=== PATIENT | male | born 1980 | race Caucasian/White ===

== ENCOUNTER 2018-05-30 16:33 | Emergency (ER) | payer OTHER, SELFPAY ==
[2018-05-30 16:33] VITALS: BP 145/83; PULSE 103; RESP 18; TEMP 36.7; O2SAT 94; BMI 50.8
--- NOTE | 2018-05-30 17:01 | ED.DCSUM_ITS ---
- ER Visit Summary Date of Service: 05/30/18 Chief Complaint: Nausea and vomiting History of Present Illness: The patient is a 37 M underwent laparoscopic gastric bypass to [facility] on Monday. He was discharged yesterday afternoon he did well postoperatively according to his . Within the last 2 hours he started having nausea and vomiting. He has had no diarrhea. No melena. He has had no significant hematemesis. He has had no fever. He has had no dysuria. He feels like he is becoming dehydrated. They called the [facility] he did his gastric bypass surgery and they wanted him evaluated. He states his pain is no worse and is been but is not been able to keep his pain medications down the last few hours. Physical Examination: Vital signs are stable afebrile. Blood pressure 145/83. He does not look septic or toxic. H EENT exam mildly dry mucous membranes. Pupils round reactive light. Neck nontender. Lungs clear to auscultation. Heart regular rhythm rate about 103 no murmur. Abdomen soft. Mildly distended. He has multiple laparoscopic incision sites. These are dry and clean. There is no signs of infection or discharge. He has bowel sounds appear to be hypoactive.. He is diffusely tender. He is moving all 4 extremities. They are neurovascularly intact. Neurologically is awake and alert and moving all 4 extremities. No focal motor deficits. Test Results: His white count of 5. H&H is 16 and 49. Electrolytes sodium 133. Normal gap. Normal BUN and creatinine. Emergency department even though he was not vomiting. Because of his recent surgery I did obtain a CT abdomen and pelvis with IV contrast only. As read by the radiologist this appears to be a small bowel obstruction. There is also dilatation of the colon. I discussed the CAT scan results with the radiologist. Emergency Department Course and Treatment: Patient will be given a liter of IV fluids. Since he has been able to hold down his oxycodone pain medication I will give him IV morphine and Zofran for nausea. Treatment Plan: Discussed all test results the patient and his . I have the [facility] on page for him to be transferred back up there since he is postoperative and was gastric bypass surgery. He will need further evaluation and further evaluation of his CAT scan results. Disposition: Transfer to [facility] for admission for small bowel obstruction status post gastric bypass. Impression: Acute small bowel obstruction with also dilated colon Acute nausea and vomiting Dehydration Status post laparoscopic gastric bypass surgery 2 days ago This note was generated with [employer] dictation software. It may contain incorrect words, spelling, and punctuation that were not noted in review of the chart prior to signing ED Disposition - Plan for ED Patient: Chief Complaint: Nausea/Vomiting Referrals: Jose Grace MD [Primary Care Provider] -
[2018-05-30] MEDS: Ondansetron 4 MG/2 ML Vial IV ×2 (17:03→18:06)
[2018-05-30] MEDS: morphine 8 MG/ML Syringe 6 MG IV ×2 (17:03→23:13)
[2018-05-30] MEDS: 0.9% Normal Saline 1,000 ML 1000 ML IV (17:03)
[2018-05-30 17:30] LABS: Absolute Lymphocyte Count 0.65 X10^3/ul (0.83-4.51); Absolute Neutrophil Count 4.5 X10^3/uL (2.0-7.7); Basophil# 0.01 X10^3/uL; Basophil% 0.2 % (0-1); Eosinophil# 0.06 X10^3/uL; Hematocrit 49.9 % (40-54); Hemoglobin 16.6 g/dl (13.0-16.5); Lymphocyte # 0.65 X10^3/ul (4.0); Lymphocyte % 11.2 % (19-41); Mean Corp Hgb Conc 33.3 g/gl (32-36); Mean Corpuscular Hgb 29.9 pg (27.0-32.0); Mean Corpuscular Volume 89.7 fL (80-94); Mean Platelet Vol. 12.3 fl (6.2-12.0); Monocyte# 0.59 X10^3/uL; Monocyte% 10.2 % (0-10); Neutrophil # 4.48 X10^3/uL (2.7-7.7); Neutrophil % 77.2 % (47-70); Platelet Count 175 K/mm3 (150-450); RBC Distribution Width CV 13.7 % (11.6-14.6); RBC Distribution Width SD 45.5 fl (35.1-43.9); Red Blood Count 5.56 M/mm3 (4.6-6.2); White Blood Count 5.8 K/mm3 (4.4-11.0)
[2018-05-30 17:36] LABS: POSITIVE COUNT NO; POSITIVE DIFFERENTIAL NO; POSITIVE MORPHOLOGY NO
[2018-05-30 17:38] LABS: Anion Gap 9 (5-15); BUN 12 mg/dL (7-18); BUN/Creat Ratio 14.6 RATIO (10-20); Calcium,Total 9.2 mg/dL (8.5-10.1); Chloride 98 mmol/L (98-107); Creatinine, Serum 0.82 mg/dL (0.70-1.30); EST Glomerular Filtration Rate 111 mL/min (>60); Est Glom Filt Rate - Afr Amer 134 mL/min (>60); Glucose 111 mg/dL (74-106); Potassium 4.8 mmol/L (3.5-5.1); Sodium Level 133 mmol/L (136-145)
[2018-05-30] MEDS: proMETHazine 25 MG/ML Syringe 12.5 MG IV ×2 (18:38→19:28)
[2018-05-30 19:14] VITALS: RESP 17
--- NOTE | 2018-05-30 20:04 | CT_ITS ---
STUDY: CT ABDOMEN AND PELVIS WITH CONTRAST REASON FOR EXAM: Male, 37 years old. Nausea, vomiting and weakness. Patient had gastric bypass surgery 2 days ago. RADIATION DOSAGE (If Supplied By Facility): CTDIvol = ( 17.08 ) mGy, DLP = ( 1288.62 ) mGycm TECHNIQUE: Transaxial images were obtained from the dome of the diaphragm to the symphysis pubis without oral contrast. 100 ml of Isovue 300 contrast was administered. Sagittal and coronal images were reconstructed. Individualized dose optimization techniques were used for this CT. COMPARISON: None. FINDINGS: There is patchy left basilar airspace consolidation and dependent atelectasis. The right lung base appears to be clear. The visualized heart is mildly enlarged. There is no evidence for pericardial effusion. Normal liver. Normal gallbladder and extrahepatic biliary system. Normal spleen. There is diffuse atrophy of the pancreas. Normal bilateral adrenal glands. Normal right kidney. Normal left kidney. Multiple surgical sutures are visible in the stomach consistent with history of gastric bypass surgery. There is dilated proximal small bowel with maximum transverse dimension of approximately 4.4 cm. The distal small bowel does not appear to be as dilated. There is also distention of the cecum measuring up to 11.3 cm. There is also dilatation of the ascending colon, hepatic flexure and transverse colon. The descending colon and sigmoid colon does not appear to be dilated. There are multiple colonic diverticula consistent with diverticulosis. There is non-visualization of the appendix. Normal abdominal aorta. Normal inferior vena cava. Normal retroperitoneum. Normal urinary bladder. There is absence of the uterus consistent with a prior hysterectomy. There is a small umbilical hernia containing fat. There are bridging osteophytes anterior to the right sacroiliac joint. There are degenerative changes of the left sacroiliac joint. There is a severe compression fracture of T6 with at least 70% compression. CT/Abdomen/Pelvis W IV Cont ONLY IMPRESSION: 1. CT findings suggests a small bowel obstruction. 2. There is also dilatation of the ascending colon, and transverse colon primarily with severe dilatation of the cecum. This has the appearance of an ileus possibly related to ischemia. 3. Sequela of gastric bypass surgery. Electronically Signed: Estela Gilbert MD at 20:49 EDT , Service support ,
[2018-05-30 21:07] VITALS: RESP 18
[2018-05-30 23:14] VITALS: BP 128/83; PULSE 122; RESP 18; O2SAT 94
[2018-05-30 23:58] VITALS: BP 132/73; PULSE 108; RESP 18; O2SAT 94
[2018-05-31 00:12] VITALS: BP 132/73; PULSE 108; RESP 18; O2SAT 94
== END 2018-05-31 00:29 | disposition short-term general hospital (02) ==
PROVIDERS: Emergency Provider Emergency Medicine
DX: K56.609 Unspecified intestinal obstruction, unspecified as to partial versus complete obstruction (principal); K59.39 Other megacolon; R11.2 Nausea with vomiting, unspecified; E86.0 Dehydration; Z98.84 Bariatric surgery status; E66.9 Obesity, unspecified
CPT/HCPCS: 74177; 80048; 85025; 96361; 96374; 96375; 96376; 99284; J7030; Q9967; A4216; J2405

== ENCOUNTER 2020-06-15 13:16 | Emergency (ER) | payer OTHER, SELFPAY ==
[2020-06-15 13:17] VITALS: BP 135/88; PULSE 79; PULSE 81; RESP 18; TEMP 36.2; O2SAT 100; O2SAT 99; BMI 44.9
--- NOTE | 2020-06-15 13:51 | RAD_ITS ---
STUDY: X-RAY CHEST REASON FOR EXAM: Male, 39 years old. CP since Monday after splitting and lifting wood -- SOB with exertion TECHNIQUE: PA and lateral views of the chest. COMPARISON: Comparison is made with prior study dated 05/03/2017. FINDINGS: EKG electrodes are seen. The lungs are clear and expanded. Scattered calcified granulomas. There is no demonstrated pleural abnormality. Normal size heart. Normal mediastinum and samara. Normal visualized pulmonary arteries. There is atherosclerotic tortuosity of the aortic arch and descending thoracic aorta. Stable loss of height of a mid dorsal vertebrae. Normal visualized ribs, clavicles, and shoulders. There is no demonstrated abnormality of the visualized soft tissue structures of the upper abdomen. RAD/Chest PA and Lateral IMPRESSION: No acute abnormality is seen. Electronically Signed: Aditya Hadley, at 14:27 EDT , Service support ,
--- NOTE | 2020-06-15 13:51 | EKG12_ITS ---
Test Reason : Blood Pressure : / mmHG Vent. Rate : 067 BPM Atrial Rate : 067 BPM P-R Int : 166 ms QRS Dur : 086 ms QT Int : 382 ms P-R-T Axes : 028 010 015 degrees QTc Int : 403 ms Normal sinus rhythm Normal ECG Confirmed by JIMI ROMERO, ARLEN ([id number]), design editor SANDRA CAAL ([id number]) on 06/22/2020 11:43:48 AM Referred By: MARISA Confirmed By:ARLEN KRAUSE MD
[2020-06-15] MEDS: Aspirin 81 MG TAB.CHEW 324 MG PO (14:00)
[2020-06-15 14:11] LABS: Absolute Lymphocyte Count 1.88 X10^3/uL (0.83-4.51); Absolute Neutrophil Count 4.4 X10^3/uL (2.0-7.7); Basophil# 0.03 X10^3/uL; Basophil% 0.4 % (0-1); Eosinophil# 0.15 X10^3/uL; Eosinophils% 2.1 % (0-5); Hematocrit 44.5 % (40-54); Hemoglobin 14.4 g/dL (13.0-16.5); Lymphocyte # 1.88 X10^3/ul (4.0); Lymphocyte % 26.5 % (19-41); Mean Corp Hgb Conc 32.4 g/dL (32-36); Mean Corpuscular Hgb 30.1 pg (27.0-32.0); Mean Corpuscular Volume 93.1 fL (80-94); Mean Platelet Vol. 10.2 fl (6.2-12.0); Monocyte# 0.64 X10^3/uL; NRBC Flagged by Analyzer 0 % (0-5); Neutrophil # 4.36 X10^3/uL (2.7-7.7); Neutrophil % 61.6 % (47-70); Platelet Count 203 K/mm3 (150-450); RBC Distribution Width CV 12.9 % (11.6-14.6); RBC Distribution Width SD 43.9 fl (35.1-43.9); Red Blood Count 4.78 M/mm3 (4.6-6.2); White Blood Count 7.1 K/mm3 (4.4-11.0)
[2020-06-15 14:27] LABS: D-Dimer Quantitative (DVT/PE) <= 0.27 FEU/ug/m (0.27-0.49)
[2020-06-15 14:31] LABS: Anion Gap 5 (5-15); BUN 14 mg/dL (7-18); BUN/Creat Ratio 14.5 RATIO (10-20); Chloride 106 mmol/L (98-107); Creatinine, Serum 0.97 mg/dL (0.70-1.30); EST Glomerular Filtration Rate 91 mL/min (>60); Est Glom Filt Rate - Afr Amer 110 mL/min (>60); Estimated Creatinine Clearance 97.94 ml/min; Glucose 94 mg/dL (74-106); Potassium 4.1 mmol/L (3.5-5.1); Sodium Level 140 mmol/L (136-145)
[2020-06-15 14:52] VITALS: BP 111/65; PULSE 67; RESP 21; O2SAT 99
--- NOTE | 2020-06-15 14:52 | ED.DCSUM_ITS ---
History of Present Illness Chief Complaint: Chest Pain Informant: Patient Narrative: Patient presenting for evaluation secondary to chest pain. Patient reports that over the course of the last 2 to 3 days he had a gradual onset chest pain. He reports that this came on after he was stacking wood the day prior. Located in his left chest is worse with palpation, movement, taking a deep breath, but not necessarily associated with worsening with exertion. Its nonradiating, its not associated with shortness of breath lightheadedness or palpitations. No history of DVT or PE, recent travel or surgery, exogenous hormone use. Patient denies any history of smoking hypertension hyperlipidemia diabetes or premature family history of heart disease. Review of systems otherwise negative. Past Medical History - Allergies and Home Meds Allergies/Adverse Reactions: Allergies No Known Allergies Allergy (Verified 05/30/18 16:35) Primary Care Physician: Jose Grace MD [Primary Care Provider] - Prior records reviewed: Yes Lives: Spouse/ Significant Other Smoking Status: Never smoker Alcohol: None Drugs: None Review of Systems All systems negative except as indicated General: Denies: Chills, Fever, Sweats Eyes: Denies: Visual changes - bilaterally, Diplopia ENT: Denies: Rhinorrhea, Sore throat Cardiovascular: Reports: Chest pain Respiratory: Denies: Dyspnea, Cough, Dyspnea on exertion Gastrointestinal: Denies: Abdominal pain, Nausea, Vomiting, Diarrhea, Melena, Hematochezia Genitourinary: Denies: Dysuria, Hematuria, Frequency Musculoskeletal: Denies: Back pain, Extremity Pain Skin: Denies: Rash, Wounds Neurological: Denies: Headache, Weakness, Numbness Physical Exam Vital Signs/Narrative: Vital Signs Temp Pulse Resp BP Pulse Ox 06/15/20 13:17 97.2 F L 79 18 135/88 H 100 Inital Vital Signs reviewed: Yes General: Well nourished, Well developed, No Acute Distress Head: Normocephalic, Atraumatic Eyes: Perrl, EOMI ENT: Moist mucous membranes, No rhinorrhea Neck: Supple, Nontender Cardiovascular: Regular rate, Regular rhythm, No murmurs Respiratory: Chest tenderness - Left anterior without any evidence of deformity step-offs or crepitus. No overlying vesicular rash. Abdomen: Soft, Nontender, Nondistended, Normal bowel sounds Back: Nontender, Normal Inspection Extremities: Nontender, No edema Skin: Normal color, No rash Neurological: Alert, Oriented x3, Cranial nerves II-XII grossly intact, Normal Strength, Normal Sensation Psychological: Normal affect, Normal Mood Diagnostic/Tx/Re-eval Chest X-Ray - ED: 2 View, Read by ED Physician, Read by Radiologist, Normal Clinical Impression(s) from Imaging Studies Chest X-Ray 06/15/20 13:51 IMPRESSION: No acute abnormality is seen. Electronically Signed: Aditya Hadley, at 14:27 EDT , Service support , Laboratory Data 06/15/20 06/15/20 06/15/20 14:05 14:05 14:05 WBC 7.1 RBC 4.78 Hgb 14.4 Hct 44.5 MCV 93.1 MCH 30.1 MCHC 32.4 RDW Std Deviation 43.9 RDW Coeff of Kit 12.9 Plt Count 203 MPV 10.2 Immature Gran % (Auto) 0.400 Neut % (Auto) 61.6 Lymph % (Auto) 26.5 [place] % (Auto) 9.0 Eos % (Auto) 2.1 Baso % (Auto) 0.4 Absolute Neuts (auto) 4.4 Absolute Lymphs (auto) 1.88 Nucleated RBC % 0 D-Dimer Quant (PE/DVT) <= 0.27 Sodium 140 Potassium 4.1 Chloride 106 Carbon Dioxide 29.0 Anion Gap 5 BUN 14 Creatinine 0.97 Estim Creat Clear Calc 97.94 Est GFR (MDRD) Af Amer 110 Est GFR (MDRD) Non-Af 91 BUN/Creatinine Ratio 14.5 Glucose 94 Calcium 9.0 Troponin I < 0.015 - EKG Initial EKG Interpretation: - - Normal sinus rhythm with rate of [address] segments normal T waves normal IN and QTc intervals no evidence of acute ischemia or arrhythmia - Medical Decision Making Patient presented for evaluation secondary to chest pain. IV was tablets laboratory studies were obtained. PA and lateral chest x-ray negative, EKG unremarkable. CBC chemistry troponin unremarkable. Due to the patient's reports of a pleuritic component, dimer was obtained was also found to be negative. Patient's heart score is a maximum of 2, do not believe that he requires admission. This seems to be very clearly musculoskeletal chest pain. Patient was given reassurance and he was discharged. ED Disposition - Plan for ED Patient: Disposition: Home or Assisted Living Diagnosis: Musculoskeletal chest pain Instructions: ED Strain Chest Wall Referrals: Jose Grace MD [Primary Care Provider] - As Needed
== END 2020-06-15 15:08 | disposition home or self-care (01) ==
PROVIDERS: Emergency Provider Emergency Medicine
DX: R07.89 Other chest pain (principal)
CPT/HCPCS: 71046; 80048; 84484; 85025; 85379; 93005; 99285; A4216

== ENCOUNTER 2021-11-23 21:22 | Inpatient (IN) | payer OTHER, SELFPAY ==
[2021-11-23 21:23] VITALS: BP 135/80; PULSE 85; RESP 18; TEMP 36.6; O2SAT 96; BMI 44.6
[2021-11-23 21:37] LABS: Bacteria 0 SEEN /hpf (None Seen); Mucous, Urine 0 SEEN /hpf (<or=2+); White Blood Cells 0 SEEN /hpf (0-5)
[2021-11-23 21:54] LABS: Color, Urine Amber (Yellow); Glucose, Dipstick Normal (Normal); Ketone-Dipstick 5 mg/dl (Negative); Leukocyte Esterase-Dipstick 25 /ul (Negative); Nitrite-Dipstick Negative (Negative); Occult Blood-Urine 150 /ul (Negative); Protein-Dipstick 30 mg/dl (Negative); Urine Clarity Clear (Clear); Urine Urobilinogen 12 mg/dl (Normal); Urine pH 6.5 (5.0 - 8.0)
[2021-11-23 21:55] LABS: Urine Bilirubin Dipstick 6 mg/dL (Negative)
[2021-11-23 21:55] LABS: Hematocrit 43.7 % (40-54); Hemoglobin 14.5 g/dL (13.0-16.5); Mean Corp Hgb Conc 33.2 g/dL (32-36); Mean Corpuscular Hgb 30.8 pg (27.0-32.0); Mean Corpuscular Volume 92.8 fL (80-94); NRBC Flagged by Analyzer 0 % (0-5); Platelet Count 156 K/mm3 (150-450); RBC Distribution Width CV 12.6 % (11.6-14.6); RBC Distribution Width SD 43.4 fl (35.1-43.9); Red Blood Count 4.71 M/mm3 (4.6-6.2); White Blood Count 12.2 K/mm3 (4.4-11.0)
[2021-11-23 22:01] LABS: Red Blood Cells-Urine 0-5 SEEN /hpf (0-5); Squamous Epithelial Cells - UA 0-5 SEEN /hpf (0-5)
[2021-11-23 22:16] LABS: Anion Gap 5 (5-15); BUN 17 mg/dL (7-18); BUN/Creat Ratio 14.4 RATIO (10-20); Calcium,Total 8.6 mg/dL (8.5-10.1); Chloride 105 mmol/L (98-107); Creatinine, Serum 1.18 mg/dL (0.70-1.30); EST Glomerular Filtration Rate 72 mL/min (>60); Est Glom Filt Rate - Afr Amer 87 mL/min (>60); Estimated Creatinine Clearance 76.25 ml/min; Glucose 123 mg/dL (74-106); Potassium 4.2 mmol/L (3.5-5.1); Sodium Level 135 mmol/L (136-145)
--- NOTE | 2021-11-23 23:14 | CT_ITS ---
ACR Level 3 findings have been noted. An addendum which confirms receipt of the report will follow. STUDY: CT ABDOMEN AND PELVIS WITH CONTRAST REASON FOR EXAM: Male, 41 years old. Abdominal pain -- IV PO Contrast RADIATION DOSAGE (If Supplied By Facility): CTDIvol = ( 21.98 ) mGy, DLP = ( 1329.86 ) mGycm TECHNIQUE: Transaxial images were obtained from the dome of the diaphragm to the symphysis pubis without oral contrast. Oral and amp; IV Gastrografin and amp; 100mL Isovue-300 was administered. Sagittal and coronal images were reconstructed. Individualized dose optimization techniques were used for this CT. COMPARISON: Previous CT of 05/30/2018.. FINDINGS: The visualized lung bases are unremarkable. No significant pericardial effusion. Normal liver. Gallbladder remains normal in size. There is been interval development of pericholecystic haziness and fluid, suspicious for cholecystitis. Tiny noncalcified stone noted within the dependent portion of the gallbladder. No biliary ductal dilatation or calcified common duct stones. Normal spleen. Pancreas is mildly atrophic/fatty. No findings of acute pancreatitis. Normal bilateral adrenal glands. Normal right kidney. Normal left kidney. No hydronephrosis. Previous weight loss surgery. Normal small intestine. Normal colon. No findings of acute appendicitis. Normal abdominal aorta. Normal inferior vena cava. Normal retroperitoneum. Urinary bladder is nearly empty. Normal abdominal wall. No lytic or blastic osseous lesion. Bridging osteophytes noted about the SI joints. CT/Abdomen/Pelvis WITH Contrast IMPRESSION: Interval development of findings of of cholelithiasis and mild cholecystitis. No biliary ductal dilatation. Previous weight loss surgery. No findings of small bowel obstruction. Electronically Signed: Dannie Johansen MD at 2:04 EDT ,
[2021-11-23] MEDS: Ondansetron 4 MG/2 ML Vial IV (23:27)
[2021-11-23] MEDS: 0.9% Normal Saline 1,000 ML 1000 ML IV (23:27)
[2021-11-23] MEDS: Morphine 4 MG/ML Syringe IV (23:27)
--- NOTE | 2021-11-23 23:48 | ED.VIS.GI ---
HPI <Dr. Estiven Chase DO - Last Filed: 11/24/21 00:45> HPI - GI History of Present Illness Chief Complaint: Abd Pain Abdominal Pain/Flank Pain Onset: Yesterday Context: Gradual Onset Timing: Continuous Quality: Dull Location: Epigastric, RUQ and LUQ Worsened by: Nothing Relieved by: Nothing Nausea/Vomiting/Emesis GI Symptom: Positive for Nausea and Vomiting Diarrhea/Melena/Hematochezia GI Symptom: Positive for Diarrhea; Negative for Melena and Hematochezia Associated Symptoms Associated Symptoms: Negative for Dysuria, Frequency and Hematuria Narrative Narrative: Patient presents with abdominal pain that began yesterday. Patient states it is gradually gotten worse. Patient states it is constant. Patient states it is over the upper abdomen. Patient denies any radiation of the pain. Patient states nothing makes it worse and nothing makes it better. Patient denies any fevers or chills. Patient admits to some nausea and vomiting. Patient denies any hematemesis or coffee-ground emesis. Patient states he has some diarrhea. Patient states his stools are little bit darker than usual. Patient denies any hematochezia. Patient denies any urinary complaints. PFSH <Dr. Estiven Chase DO - Last Filed: 11/24/21 00:45> PFSH Medical History (Updated 11/24/21 @ 02:[address] Jaylon Mason MD) FHx: bariatric surgery Allergy/AdvReac Type Severity Reaction Status Date / Time No Known Allergies Allergy Verified 11/23/21 21:24 Surgical History (Updated 11/24/21 @ 02:[address] Jaylon Mason MD) Hx of bariatric surgery Hx of skin graft Social History Smoking Status: Never smoker ROS <Dr. Estiven Chase DO - Last Filed: 11/24/21 00:45> ROS ED Constitutional Constitutional ED: Denies chills or fever(s) Eyes Eyes: Denies blurry vision or change in vision ENT ENT ED: Denies rhinorrhea or sore throat Cardiovascular Cardiovascular: Denies chest pain or palpitations Respiratory/Chest Respiratory/Chest: Denies cough or dyspnea Gastrointestinal Gastrointestinal: Reports abdominal pain, nausea and vomiting Genitourinary Genitourinary ED: Denies dysuria or hematuria Musculoskeletal Musculoskeletal: Denies back pain or neck pain Integumentary Denies abscess or rash Neurologic Neurologic: Denies headache(s) or weakness Allergic/Immunologic Allergic/Immunologic ED: Denies mouth swelling or urticaria EXAM <Dr. Estiven Chase DO - Last Filed: 11/24/21 00:45> Physical Exam Const Vital Signs: 11/23/21 21:23 11/24/21 02:31 11/24/21 02:44 Temperature 97.9 F 97.8 F Temperature Source Temporal Pulse Rate 85 78 Respiratory Rate 18 17 Blood Pressure 135/80 H 105/69 Blood Pressure Mean 98 81 Pulse Ox 96 98 98 Oxygen Delivery Method Room Air Room Air 11/24/21 04:59 11/24/21 06:12 11/24/21 06:32 Temperature 98.2 F Temperature Source Temporal Pulse Rate 89 99 Respiratory Rate 19 H 17 17 Blood Pressure 156/78 H 106/66 Blood Pressure Mean 104 79 Pulse Ox 98 95 Oxygen Delivery Method Room Air 11/24/21 11:58 11/24/21 14:04 Temperature Temperature Source Pulse Rate 86 85 Respiratory Rate 16 16 Blood Pressure 127/72 H 112/66 Blood Pressure Mean 90 81 Pulse Ox 99 94 Oxygen Delivery Method Room Air Room Air Positive well nourished, well developed and obese General Appearance ED: well developed and NAD Nutritional Appearance: obese HEENT Reports moist mucous membranes Neck supple and no JVD Resp normal respiratory effort and clear to auscultation bilaterally Cardio regular rate and regular rhythm GI non-distended Auscultation: normoactive bowel sounds Palpation: soft and tender epigastric, LUQ and RUQ; Negative for guarding or rebound tenderness present Neuro CN's II-XII intact bilaterally, moves all extremities and no sensory deficits noted Sensorium / Orientation: alert, oriented to person, oriented to place and oriented to time Motor Exam: strength 5/5 throughout Psych mental status grossly normal <Dr. Jaylon Mason MD - Last Filed: 11/24/21 02:48> Physical Exam Const Vital Signs: 11/23/21 21:23 11/24/21 02:31 11/24/21 02:44 Temperature 97.9 F 97.8 F Temperature Source Temporal Pulse Rate 85 78 Respiratory Rate 18 17 Blood Pressure 135/80 H 105/69 Blood Pressure Mean 98 81 Pulse Ox 96 98 98 Oxygen Delivery Method Room Air Room Air 03/30/22 04:59 11/24/21 06:12 11/24/21 06:32 Temperature 98.2 F Temperature Source Temporal Pulse Rate 89 99 Respiratory Rate 19 H 17 17 Blood Pressure 156/78 H 106/66 Blood Pressure Mean 104 79 Pulse Ox 98 95 Oxygen Delivery Method Room Air 11/24/21 11:58 11/24/21 14:04 Temperature Temperature Source Pulse Rate 86 85 Respiratory Rate 16 16 Blood Pressure 127/72 H 112/66 Blood Pressure Mean 90 81 Pulse Ox 99 94 Oxygen Delivery Method Room Air Room Air <Dr. Nino Magallanes MD - Last Filed: 11/24/21 14:39> Physical Exam Const Vital Signs: 11/23/21 21:23 11/24/21 02:31 11/24/21 02:44 Temperature 97.9 F 97.8 F Temperature Source Temporal Pulse Rate 85 78 Respiratory Rate 18 17 Blood Pressure 135/80 H 105/69 Blood Pressure Mean 98 81 Pulse Ox 96 98 98 Oxygen Delivery Method Room Air Room Air 11/24/21 04:59 11/24/21 06:12 11/24/21 06:32 Temperature 98.2 F Temperature Source Temporal Pulse Rate 89 99 Respiratory Rate 19 H 17 17 Blood Pressure 156/78 H 106/66 Blood Pressure Mean 104 79 Pulse Ox 98 95 Oxygen Delivery Method Room Air 11/24/21 11:58 11/24/21 14:04 Temperature Temperature Source Pulse Rate 86 85 Respiratory Rate 16 16 Blood Pressure 127/72 H 112/66 Blood Pressure Mean 90 81 Pulse Ox 99 94 Oxygen Delivery Method Room Air Room Air MDM <Dr. Estiven Chase DO - Last Filed: 11/24/21 00:45> MDM MDM Narrative Medical decision making narrative: Patient was given IV fluids, morphine, and Zofran. CBC shows a leukocytosis of 12.2. Basic metabolic profile shows mild hyponatremia of 135 but was otherwise within normal limits. Urinalysis does not show any evidence of urinary tract infection. Liver profile and lipase were ordered. CT scan of the abdomen and pelvis was ordered. Care of the patient was turned over to the oncoming physician pending these results. Lab Data Attestation: I reviewed the patient's lab results. Labs: Laboratory Results - last 24 hr 11/23/21 11/23/21 11/23/21 21:31 21:35 21:35 WBC 12.2 H RBC 4.71 Hgb 14.5 Hct 43.7 MCV 92.8 MCH 30.8 MCHC 33.2 RDW Std Deviation 43.4 RDW Coeff of Kit 12.6 Plt Count 156 MPV 10.0 Neut % (Auto) Not Reportable Absolute Neuts (auto) Not Reportable Nucleated RBC % 0 Sodium 135 L Potassium 4.2 Chloride 105 Carbon Dioxide 25.0 Anion Gap 5 BUN 17 Creatinine 1.18 Estim Creat Clear Calc 76.25 Est GFR (MDRD) Af Amer 87 Est GFR (MDRD) Non-Af 72 BUN/Creatinine Ratio 14.4 Glucose 123 H Calcium 8.6 Total Bilirubin Direct Bilirubin AST ALT Alkaline Phosphatase Total Protein Albumin Globulin Lipase Urine Color Jania Urine Clarity Clear Urine pH 6.5 Ur Specific [place] 1.010 Urine Protein 30 H Urine Glucose (UA) Normal Urine Ketones 5 H Urine Occult Blood 150 H Urine Nitrite Negative Urine Bilirubin 6 H Urine Urobilinogen 12 H Ur Leukocyte Esterase 25 H Urine RBC 0-5 SEEN Urine WBC 0 SEEN Ur Squamous Epith Cells 0-5 SEEN Urine Bacteria 0 SEEN Urine Mucus 0 SEEN 11/23/21 11/24/21 23:30 00:20 WBC RBC Hgb Hct MCV MCH MCHC RDW Std Deviation RDW Coeff of Kit Plt Count MPV Neut % (Auto) Absolute Neuts (auto) Nucleated RBC % Sodium Potassium Chloride Carbon Dioxide Anion Gap BUN Creatinine Estim Creat Clear Calc Est GFR (MDRD) Af Amer Est GFR (MDRD) Non-Af BUN/Creatinine Ratio Glucose Calcium Total Bilirubin Cancelled 6.30 H Direct Bilirubin Cancelled 4.11 H AST Cancelled 263 H ALT Cancelled 257 H Alkaline Phosphatase Cancelled 97 Total Protein Cancelled 6.1 L Albumin Cancelled 3.0 L Globulin Cancelled 3.1 Lipase Cancelled 80 Urine Color Urine Clarity Urine pH Ur Specific [place] Urine Protein Urine Glucose (UA) Urine Ketones Urine Occult Blood Urine Nitrite Urine Bilirubin Urine Urobilinogen Ur Leukocyte Esterase Urine RBC Urine WBC Ur Squamous Epith Cells Urine Bacteria Urine Mucus Radiography Diagnostic Testing: Clinical Impression(s) from Imaging Studies Abdomen/Pelvis CT 11/23/21 23:14 IMPRESSION: Interval development of findings of of cholelithiasis and mild cholecystitis. No biliary ductal dilatation. Previous weight loss surgery. No findings of small bowel obstruction. Electronically Signed: Dannie Johansen MD at 2:04 EDT , ADDENDUM: 11/24/21 0213 IMPRESSION: Interval development of findings of of cholelithiasis and mild cholecystitis. No biliary ductal dilatation. Previous weight loss surgery. No findings of small bowel obstruction. N.B. : Marko Willis RN, confirmed on 11/24/2021 02:06:57 (ET) that the healthcare facility has received the radiology report. Electronically Signed: Dannie Johansen MD at 2:04 EDT , <Dr. Jaylon Mason MD - Last Filed: 11/24/21 02:48> [facility] Narrative Medical decision making narrative: Patient turned over to me. Clinically he is doing well, he is tender in the right upper quadrant but mild-moderately so. He has hyperbilirubinemia, clinically is jaundiced, and other elevated liver enzymes consistent with biliary obstruction. Radiologist interpreted his CT scan is mild acute cholecystitis, but with normal common bile duct although after I discussed with Dr. Sandy with surgery, he reviewed the films and disagree with the radiologist, suggesting that the biliary plumbing does appear to be abnormally dilated. He requested the patient be transferred to a higher level of care due to his prior Dalila-en-Y procedure and the relatively complicated nature of accessing it intraoperatively in order to perform the needed ERCP to clear his biliary obstruction prior to his cholecystectomy, which we do not have the capacity or the capability to do at this facility. Since patient had his gastric bypass done at [facility] he prefers to go there. Discussed with her transfer center. Patient is ordered Zosyn. The requested Covid test is ordered. Discussed with surgery and accepted there by Dr. Murillo. Lab Data Attestation: I reviewed the patient's lab results. Labs: Laboratory Results - last 24 hr 11/23/21 11/23/21 11/23/21 21:31 21:35 21:35 WBC 12.2 H RBC 4.71 Hgb 14.5 Hct 43.7 MCV 92.8 MCH 30.8 MCHC 33.2 RDW Std Deviation 43.4 RDW Coeff of Kit 12.6 Plt Count 156 MPV 10.0 Neut % (Auto) Not Reportable Absolute Neuts (auto) Not Reportable Nucleated RBC % 0 Sodium 135 L Potassium 4.2 Chloride 105 Carbon Dioxide 25.0 Anion Gap 5 BUN 17 Creatinine 1.18 Estim Creat Clear Calc 76.25 Est GFR (MDRD) Af Amer 87 Est GFR (MDRD) Non-Af 72 BUN/Creatinine Ratio 14.4 Glucose 123 H Calcium 8.6 Total Bilirubin Direct Bilirubin AST ALT Alkaline Phosphatase Total Protein Albumin Globulin Lipase Urine Color Jania Urine Clarity Clear Urine pH 6.5 Ur Specific [place] 1.010 Urine Protein 30 H Urine Glucose (UA) Normal Urine Ketones 5 H Urine Occult Blood 150 H Urine Nitrite Negative Urine Bilirubin 6 H Urine Urobilinogen 12 H Ur Leukocyte Esterase 25 H Urine RBC 0-5 SEEN Urine WBC 0 SEEN Ur Squamous Epith Cells 0-5 SEEN Urine Bacteria 0 SEEN Urine Mucus 0 SEEN 11/23/21 11/24/21 23:30 00:20 WBC RBC Hgb Hct MCV MCH MCHC RDW Std Deviation RDW Coeff of Kit Plt Count MPV Neut % (Auto) Absolute Neuts (auto) Nucleated RBC % Sodium Potassium Chloride Carbon Dioxide Anion Gap BUN Creatinine Estim Creat Clear Calc Est GFR (MDRD) Af Amer Est GFR (MDRD) Non-Af BUN/Creatinine Ratio Glucose Calcium Total Bilirubin Cancelled 6.30 H Direct Bilirubin Cancelled 4.11 H AST Cancelled 263 H ALT Cancelled 257 H Alkaline Phosphatase Cancelled 97 Total Protein Cancelled 6.1 L Albumin Cancelled 3.0 L Globulin Cancelled 3.1 Lipase Cancelled 80 Urine Color Urine Clarity Urine pH Ur Specific [place] Urine Protein Urine Glucose (UA) Urine Ketones Urine Occult Blood Urine Nitrite Urine Bilirubin Urine Urobilinogen Ur Leukocyte Esterase Urine RBC Urine WBC Ur Squamous Epith Cells Urine Bacteria Urine Mucus Radiography Diagnostic Testing: Clinical Impression(s) from Imaging Studies Abdomen/Pelvis CT 11/23/21 23:14 IMPRESSION: Interval development of findings of of cholelithiasis and mild cholecystitis. No biliary ductal dilatation. Previous weight loss surgery. No findings of small bowel obstruction. Electronically Signed: Dannie Johansen MD at 2:04 EDT , ADDENDUM: 11/24/21 0213 IMPRESSION: Interval development of findings of of cholelithiasis and mild cholecystitis. No biliary ductal dilatation. Previous weight loss surgery. No findings of small bowel obstruction. N.B. : Marko Willis RN, confirmed on 11/24/2021 02:06:57 (ET) that the healthcare facility has received the radiology report. Electronically Signed: Dannie Johansen MD at 2:04 EDT , <Dr. Nino Magallanes MD - Last Filed: 11/24/21 14:39> MDM MDM Narrative Medical decision making narrative: Patient was at turnover. Patient has acute cholecystitis with biliary obstruction. He has had a prior gastric bypass. He needs a specific type of ERCP done prior to the cholecystectomy. That cannot be performed here. Patient is an established patient at the [facility]. They have accepted him but have no bed available. I then tried [facility] at this time is unable to accept him in transfer. Our general surgeon Dr. Guillermo Paulson will admit the patient for pain control and IV antibiotics awaiting transfer to the [facility]. Lab Data Labs: Laboratory Results - last 24 hr 11/23/21 11/23/21 11/23/21 21:31 21:35 21:35 WBC 12.2 H RBC 4.71 Hgb 14.5 Hct 43.7 MCV 92.8 MCH 30.8 MCHC 33.2 RDW Std Deviation 43.4 RDW Coeff of Kit 12.6 Plt Count 156 MPV 10.0 Neut % (Auto) Not Reportable Absolute Neuts (auto) Not Reportable Nucleated RBC % 0 Sodium 135 L Potassium 4.2 Chloride 105 Carbon Dioxide 25.0 Anion Gap 5 BUN 17 Creatinine 1.18 Estim Creat Clear Calc 76.25 Est GFR (MDRD) Af Amer 87 Est GFR (MDRD) Non-Af 72 BUN/Creatinine Ratio 14.4 Glucose 123 H Calcium 8.6 Total Bilirubin Direct Bilirubin AST ALT Alkaline Phosphatase Total Protein Albumin Globulin Lipase Urine Color Jania Urine Clarity Clear Urine pH 6.5 Ur Specific [place] 1.010 Urine Protein 30 H Urine Glucose (UA) Normal Urine Ketones 5 H Urine Occult Blood 150 H Urine Nitrite Negative Urine Bilirubin 6 H Urine Urobilinogen 12 H Ur Leukocyte Esterase 25 H Urine RBC 0-5 SEEN Urine WBC 0 SEEN Ur Squamous Epith Cells 0-5 SEEN Urine Bacteria 0 SEEN Urine Mucus 0 SEEN 11/23/21 11/24/21 23:30 00:20 WBC RBC Hgb Hct MCV MCH MCHC RDW Std Deviation RDW Coeff of Kit Plt Count MPV Neut % (Auto) Absolute Neuts (auto) Nucleated RBC % Sodium Potassium Chloride Carbon Dioxide Anion Gap BUN Creatinine Estim Creat Clear Calc Est GFR (MDRD) Af Amer Est GFR (MDRD) Non-Af BUN/Creatinine Ratio Glucose Calcium Total Bilirubin Cancelled 6.30 H Direct Bilirubin Cancelled 4.11 H AST Cancelled 263 H ALT Cancelled 257 H Alkaline Phosphatase Cancelled 97 Total Protein Cancelled 6.1 L Albumin Cancelled 3.0 L Globulin Cancelled 3.1 Lipase Cancelled 80 Urine Color Urine Clarity Urine pH Ur Specific [place] Urine Protein Urine Glucose (UA) Urine Ketones Urine Occult Blood Urine Nitrite Urine Bilirubin Urine Urobilinogen Ur Leukocyte Esterase Urine RBC Urine WBC Ur Squamous Epith Cells Urine Bacteria Urine Mucus Radiography Diagnostic Testing: Clinical Impression(s) from Imaging Studies Abdomen/Pelvis CT 11/23/21 23:14 IMPRESSION: Interval development of findings of of cholelithiasis and mild cholecystitis. No biliary ductal dilatation. Previous weight loss surgery. No findings of small bowel obstruction. Electronically Signed: Dannie Johansen MD at 2:04 EDT , ADDENDUM: 11/24/21 0218 IMPRESSION: Interval development of findings of of cholelithiasis and mild cholecystitis. No biliary ductal dilatation. Previous weight loss surgery. No findings of small bowel obstruction. N.B. : Marko Willis RN, confirmed on 11/24/2021 02:06:57 (ET) that the healthcare facility has received the radiology report. 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
[2021-11-24] VITALS (11 sets, daily range): BP systolic 102–156; BP diastolic 58–78; PULSE 78–99; RESP 15–19; TEMP 36.6–37.2; O2SAT 94–99; BMI 45.9
[2021-11-24 01:08] LABS: AST(SGOT) 263 U/L (15-37); Alanine Aminotransfer ALT/SGPT 257 U/L (16-61); Alkaline Phosphatase 97 U/L (45-117); Bilirubin, Direct 4.11 mg/dL (0.00-0.30); Globulin 3.1 g/dL (2.2-4.2); Lipase 80 U/L (73-393); Protein, Total 6.1 g/dL (6.4-8.2)
[2021-11-24] MEDS: Piperacil/Tazobactam 3.375 GM/50 ML ML IV (02:53)
--- NOTE | 2021-11-24 07:42 | NURSING ---
CALLED [facility] TRANSFER LINE ABOUT BED STATUS. TALKED TO EVY. SHE COULDN'T GIVE ME A TIME FOR A BED.
--- NOTE | 2021-11-24 10:30 | CM.ED ---
RNCM ER NOTE: According to patient insurance [employer] P[employer], In Network Tertiary facilities for HLOC transfer are as follows: [facility] , [facility], [facility], [facility], [facility], [facility], [facility], [facility]. Glenn Yancey, RNCM
--- NOTE | 2021-11-24 11:58 | NURSING ---
CALLED [facility] TRANSFER LINE FOR AN UPDATE. SHE TALKED TO THE OBSTETRICS TECHNICIAN AND COULDN'T GET A TIMELINE
[2021-11-24] MEDS: Morphine 4 MG/ML Syringe 6 MG IV (12:08)
[2021-11-24] MEDS: Ondansetron 4 MG/2 ML Vial IV ×2 (12:09→17:07)
--- NOTE | 2021-11-24 12:18 | NURSING ---
DR CELI COHEN
--- NOTE | 2021-11-24 12:27 | NURSING ---
CALLED GOPI COHEN
--- NOTE | 2021-11-24 14:31 | HP.PCM.SX_ITS ---
HPI - General HPI Narrative DODIE SOLOMON, is a 41 M who presents to the emergency with upper abdominal pain that started Monday evening. Patient reports nausea and vomiting. He does not have any fevers or chills. PFSH Medical History (Updated 11/24/21 @ 02:[address] Jaylon Mason MD) FHx: bariatric surgery Allergy/AdvReac Type Severity Reaction Status Date / Time No Known Allergies Allergy Verified 11/23/21 21:24 Surgical History (Updated 11/24/21 @ 02:[address] Jaylon Mason MD) Hx of bariatric surgery Hx of skin graft Social History Smoking Status: Never smoker ROS Constitutional Constitutional: Denies anorexia, fatigue or fever(s) Eyes Eyes: Denies blurry vision ENT HEENT: Denies abnormal hearing Cardiovascular Cardiovascular: Denies chest pain Respiratory/Chest Respiratory/Chest: Denies cough or dyspnea Gastrointestinal Gastrointestinal: Reports abdominal pain and nausea Genitourinary Genitourinary: Denies change in urinary stream Musculoskeletal Musculoskeletal: Denies abnormal gait or back pain Integumentary Integumentary: Denies jaundice Neurologic Neurologic: Denies abnormal gait Psychiatric Psychiatric: Denies anxiety Endocrine Endocrinology: Denies flushing Hematologic/Lymphatic Hematologic/Lymphatic: Denies easy bleeding Vital Signs Vital Signs Vital Signs: 11/23/21 21:23 11/24/21 02:31 11/24/21 02:44 Temperature 97.9 F 97.8 F Temperature Source Temporal Pulse Rate 85 78 Respiratory Rate 18 17 Blood Pressure 135/80 H 105/69 Blood Pressure Mean 98 81 Pulse Ox 96 98 98 Oxygen Delivery Method Room Air Room Air 11/24/21 04:59 11/24/21 06:12 11/24/21 06:32 Temperature 98.2 F Temperature Source Temporal Pulse Rate 89 99 Respiratory Rate 19 H 17 17 Blood Pressure 156/78 H 106/66 Blood Pressure Mean 104 79 Pulse Ox 98 95 Oxygen Delivery Method Room Air 11/24/21 11:58 11/24/21 14:04 Temperature Temperature Source Pulse Rate 86 85 Respiratory Rate 16 16 Blood Pressure 127/72 H 112/66 Blood Pressure Mean 90 81 Pulse Ox 99 94 Oxygen Delivery Method Room Air Room Air Weight Weight: 285 lb Body Mass Index (BMI) 44.6 Physical Exam Const no apparent distress Resp normal respiratory effort Cardio regular rate and regular rhythm GI soft to palpation Palpation: tender epigastric and RUQ Results Lab / Micro Data Result Diagrams: 11/23/21 21:35 11/23/21 21:35 Labs: Laboratory Results - last 24 hr 11/23/21 21:31: Urine Color Jania, Urine Clarity Clear, Urine pH 6.5, Ur Specific [place] 1.010, Urine Protein 30 H, Urine Glucose (UA) Normal, Urine Ketones 5 H, Urine Occult Blood 150 H, Urine Nitrite Negative, Urine Bilirubin 6 H, Urine Urobilinogen 12 H, Ur Leukocyte Esterase 25 H, Urine RBC 0-5 SEEN, Urine WBC 0 SEEN, Ur Squamous Epith Cells 0-5 SEEN, Urine Bacteria 0 SEEN, Urine Mucus 0 SEEN 11/23/21 21:35: WBC 12.2 H, RBC 4.71, Hgb 14.5, Hct 43.7, MCV 92.8, MCH 30.8, MCHC 33.2, RDW Std Deviation 43.4, RDW Coeff of Kit 12.6, Plt Count 156, MPV 10.0, Neut % (Auto) Not Reportable, Absolute Neuts (auto) Not Reportable, Nucleated RBC % 0 11/23/21 21:35: Sodium 135 L, Potassium 4.2, Chloride 105, Carbon Dioxide 25.0, Anion Gap 5, BUN 17, Creatinine 1.18, Estim Creat Clear Calc 76.25, Est GFR (MDRD) Af Amer 87, Est GFR (MDRD) Non-Af 72, BUN/Creatinine Ratio 14.4, Glucose 123 H, Calcium 8.6 11/23/21 23:30: Total Bilirubin Cancelled, Direct Bilirubin Cancelled, AST Cancelled, ALT Cancelled, Alkaline Phosphatase Cancelled, Total Protein Cancelled, Albumin Cancelled, Globulin Cancelled, Lipase Cancelled 11/24/21 00:20: Total Bilirubin 6.30 H, Direct Bilirubin 4.11 H, AST 263 H, ALT 257 H, Alkaline Phosphatase 97, Total Protein 6.1 L, Albumin 3.0 L, Globulin 3.1, Lipase 80 Micro: Microbiology 11/24/21 02:35 Interface Orders SARS-CoV-2 Antigen (Rapid) - Final Radiology Impression Abdomen/Pelvis CT 11/23/21 23:14 IMPRESSION: Interval development of findings of of cholelithiasis and mild cholecystitis. No biliary ductal dilatation. Previous weight loss surgery. No findings of small bowel obstruction. Electronically Signed: Dannie Johansen MD at 2:04 EDT , ADDENDUM: 11/24/21 0213 IMPRESSION: Interval development of findings of of cholelithiasis and mild cholecystitis. No biliary ductal dilatation. Previous weight loss surgery. No findings of small bowel obstruction. N.B. : Marko Willis RN, confirmed on 11/24/2021 02:06:57 (ET) that the healthcare facility has received the radiology report. Electronically Signed: Dannie Johansen MD at 2:04 EDT , Assessment & Plan Assessment/Plan (1) Acute calculous cholecystitis: (2) Biliary tract obstruction: PLAN: I was asked by the emergency room to admit the patient while awaiting transfer to tertiary care center. Patient has acute cholecystitis with likely obstruction and elevated liver enzymes. The patient has had Dalila-en-Y bypass in the past making ERCP and possible at this institution. We also do not have biliary surgeon to do a common duct exploration and reconstruction if necessary. I will admit the patient on clear liquids and start IV fluids and IV antibiotics and await transfer to [facility] which has been requested. Patient is currently already been in the emergency room several hours and I will admit for observation. Guillermo Cheng MD Pager: [facility] [address] [place] [address], [address] [place] [address] Office:
--- NOTE | 2021-11-24 14:46 | NURSING ---
MED SURG HANNA ACUTE CHOLECYSTITIS, BILIARY OBSTRUCTION S/P GASTRIC BYPASS
[2021-11-24] MEDS: Morphine 2 MG/ML Syringe IV ×2 (17:07→20:13)
[2021-11-24] MEDS: 0.9% Saline Lock 10 ML Syringe IV (17:08)
[2021-11-24] MEDS: 0.9% Normal Saline 1,000 ML 60 ML IV (17:08)
--- NOTE | 2021-11-24 23:52 | NURSING ---
[facility] transfer line called. This RN was informed they are still waiting for an open bed.
[2021-11-25] VITALS (7 sets, daily range): BP systolic 109–116; BP diastolic 61–84; PULSE 69–85; RESP 16–18; TEMP 36.6–36.8; O2SAT 97–98
[2021-11-25] MEDS: Morphine 2 MG/ML Syringe IV ×3 (01:18→22:07)
[2021-11-25 06:09] LABS: Absolute Lymphocyte Count 0.85 X10^3/uL (0.83-4.51); Absolute Neutrophil Count 3.8 X10^3/uL (2.0-7.7); Basophil# 0.04 X10^3/uL; Basophil% 0.7 % (0-1); Eosinophil# 0.25 X10^3/uL; Eosinophils% 4.7 % (0-5); Hematocrit 41.3 % (40-54); Hemoglobin 13.8 g/dL (13.0-16.5); Lymphocyte # 0.85 X10^3/ul (0.83-4.51); Lymphocyte % 15.8 % (19-41); Mean Corp Hgb Conc 33.4 g/dL (32-36); Mean Corpuscular Hgb 31.2 pg (27.0-32.0); Mean Corpuscular Volume 93.4 fL (80-94); Mean Platelet Vol. 10.6 fl (6.2-12.0); Monocyte# 0.41 X10^3/uL; Monocyte% 7.6 % (0-10); NRBC Flagged by Analyzer 0 % (0-5); Neutrophil # 3.78 X10^3/uL (2.7-7.7); Neutrophil % 70.5 % (47-70); Platelet Count 140 K/mm3 (150-450); RBC Distribution Width CV 12.8 % (11.6-14.6); RBC Distribution Width SD 43.9 fl (35.1-43.9); Red Blood Count 4.42 M/mm3 (4.6-6.2); White Blood Count 5.4 K/mm3 (4.4-11.0)
[2021-11-25 06:36] LABS: ALB/GLOB Ratio 0.9 RATIO (0.9-2.4); AST(SGOT) 79 U/L (15-37); Alanine Aminotransfer ALT/SGPT 157 U/L (16-61); Albumin, Serum 2.8 g/dL (3.2-5.0); Alkaline Phosphatase 99 U/L (45-117); Anion Gap 5 (5-15); BUN 13 mg/dL (7-18); BUN/Creat Ratio 12.6 RATIO (10-20); Calcium,Total 8.6 mg/dL (8.5-10.1); Chloride 105 mmol/L (98-107); Creatinine, Serum 1.03 mg/dL (0.70-1.30); EST Glomerular Filtration Rate 84 mL/min (>60); Est Glom Filt Rate - Afr Amer 102 mL/min (>60); Estimated Creatinine Clearance 87.35 ml/min; Globulin 3.2 g/dL (2.2-4.2); Glucose 85 mg/dL (74-106); Potassium 3.6 mmol/L (3.5-5.1); Sodium Level 138 mmol/L (136-145)
[2021-11-25] MEDS: 0.9% Normal Saline 1,000 ML 60 ML IV (08:15)
[2021-11-25] MEDS: DiphenhydrAMINE 25 MG Capsule PO ×2 (08:17→22:06)
[2021-11-25] MEDS: Acetaminophen 325 MG Tablet 650 MG PO ×2 (08:17→22:06)
--- NOTE | 2021-11-25 13:58 | NURSING ---
[facility] called in for an update, still on a wait list for a bed. Staff stated he is a high priority, but that they do not have a bed available at this time.
[2021-11-25] MEDS: 0.9% Saline Lock 10 ML Syringe IV ×2 (16:53→22:06)
[2021-11-26] MEDS: 0.9% Normal Saline 1,000 ML 60 ML IV (02:16)
[2021-11-26 02:40] VITALS: BP 109/69; PULSE 68; RESP 16; TEMP 36.6; O2SAT 96
--- NOTE | 2021-11-26 07:35 | PCA ---
called [facility] transfer line and asked where pt is at on list, they told this sec that he is high on the list that they had a lot of in house surgeries yesterday that they didn't have beds for Thier own, they might have a bed later if they discharge pts from surgery unit. or maybe tomorrow. informed pt he said he will talk it over with his and let us know what Alexandre decision is.
[2021-11-26 08:22] VITALS: BP 128/95; PULSE 62; RESP 16; TEMP 36.7; O2SAT 97
[2021-11-26] MEDS: Acetaminophen 325 MG Tablet 650 MG PO (08:28)
--- NOTE | 2021-11-26 09:26 | PCM.PN.SRG ---
Subjective Subjective Patient still having right upper quadrant pain. No nausea or vomiting. Objective Data Objective Data Vital Signs: Vital Signs Temp Pulse Resp BP Pulse Ox 98.1 F 62 16 128/95 H 97 11/26/21 08:22 11/26/21 08:22 11/26/21 08:22 11/26/21 08:22 11/26/21 08:22 Oxygen Delivery Method Room Air Weight: 293 lb 6.964 oz Body Mass Index (BMI) 45.9 Intake & Output: Intake and Output for Last 24 Hours 11/24/21 11/25/21 11/26/21 23:59 23:59 23:59 Intake Total 1600 / 2200 3507 / 3507 1050 / 1050 Balance 1600 / 2200 3507 / 3507 1050 / 1050 Lab / Micro Data Result Diagrams: 11/25/21 04:56 11/25/21 04:56 Micro: Microbiology 11/24/21 02:35 Interface Orders SARS-CoV-2 Antigen (Rapid) - Final Physical Exam Const oriented x3 and no apparent distress Resp normal respiratory effort Cardio regular rate and regular rhythm GI Palpation: tender RUQ Assessment & Plan Assessment/Plan (1) Acute calculous cholecystitis: (2) Biliary tract obstruction: PLAN: Patient is still on the list to be transferred to [facility] and is still has no bed available. Patient would like to be discharged he can drive to [facility] ER. Guillermo Cheng MD Pager: [facility] [address] [place] [address], [address] [place] [address] Office:
--- NOTE | 2021-11-26 09:31 | PCM.DC.SUM ---
Providers Date of Admission: 11/24/21 Primary Care Physician: Barbie Primary Care Phys Reason For Visit: ACUTE CHOLECYSTITIS Diagnosis Discharge Diagnosis (1) Acute calculous cholecystitis: Status: Acute Code(s): K80.00 - Calculus of gallbladder with acute cholecystitis without obstruction (2) Biliary tract obstruction: Status: Acute Code(s): K83.1 - Obstruction of bile duct Medications at Discharge Home Medications NK 11/24/21 Hospital Course Summary of Care Provided Hospital Course: Patient was admitted to the hospital after spending 14 hours in the emergency room with no transfer available to [facility] where he had his bariatric surgery. Patient was admitted with acute cholecystitis and possible biliary obstruction. He was started on antibiotics and clear liquids. 48 hours later he is still not received transfer and is requesting to be discharged so that he may drive to [facility] emergency room. Weight / BMI Weight Weight: 293 lb 6.964 oz Body Mass Index (BMI) 45.9 ABG / Lab / Microbiology Data Result Diagrams: 11/25/21 04:56 11/25/21 04:56 Microbiology: Microbiology 11/24/21 02:35 Interface Orders SARS-CoV-2 Antigen (Rapid) - Final Meaningful Use Info Meaningful Use Diagnoses (Choose all that apply): None applicable Discharge Plan Admission Admit Date/Time: 11/24/21 14:33 Attending Provider: Guillermo Cheng Primary Care Provider: Care Physician,Barbie Primary Discharge Orders/Prescriptions Prescriptions: No Action NK RF: 0 Referrals / Follow Up: Care Physician,No Primary [Primary Care Provider] - Disposition Disposition (needs filled in before D/C Order can be placed): Home, Self Care
[2021-11-26 11:05] VITALS: BP 121/81; PULSE 56; RESP 18; TEMP 36.9; O2SAT 98
[2021-11-26] MEDS: Morphine 2 MG/ML Syringe IV (11:06)
[2021-11-26] MEDS: 0.9% Saline Lock 10 ML Syringe IV (11:06)
== END 2021-11-26 11:57 | disposition home or self-care (01) | DRG 444 ==
LOC: ED 11-24 02:48 → MS3 11-25 07:52
PROVIDERS: Admitting Provider Surgery; Emergency Provider Emergency Medicine; Visit Provider Surgery
DX: K80.00 Calculus of gallbladder with acute cholecystitis without obstruction (principal); K83.1 Obstruction of bile duct; Z68.42 Body mass index [BMI] 45.0-49.9, adult; E87.1 Hypo-osmolality and hyponatremia; Z98.84 Bariatric surgery status; E66.9 Obesity, unspecified
CPT/HCPCS: 36415; 74177; 80048; 80053; 80076; 81001; 83690; 85025; 87811; 97802; 99285; J7030; Q9967; A4216; J2405

== ENCOUNTER → 2024-06-29 | Outpatient (CLI) | payer OTHER, SELFPAY ==
[2024-06-29 08:28] LABS: Absolute Lymphocyte Count 1.94 X10^3/uL (0.83-4.51); Absolute Neutrophil Count 5.5 X10^3/uL (2.0-7.7); Basophil# 0.05 X10^3/uL; Basophil% 0.6 % (0-1); Eosinophil# 0.33 X10^3/uL; Eosinophils% 3.9 % (0-5); Hematocrit 46.5 % (40-54); Hemoglobin 14.8 g/dL (13.0-16.5); Lymphocyte # 1.94 X10^3/ul (0.83-4.51); Lymphocyte % 22.8 % (19-41); Mean Corp Hgb Conc 31.8 g/dL (32-36); Mean Corpuscular Volume 94.1 fL (80-94); Mean Platelet Vol. 10.2 fl (6.2-12.0); Monocyte# 0.63 X10^3/uL; Monocyte% 7.4 % (0-10); NRBC Flagged by Analyzer 0 % (0-5); Neutrophil # 5.52 X10^3/uL (2.7-7.7); Neutrophil % 64.7 % (47-70); Platelet Count 201 K/mm3 (150-450); RBC Distribution Width CV 12.4 % (11.6-14.6); RBC Distribution Width SD 43.1 fl (35.1-43.9); Red Blood Count 4.94 M/mm3 (4.6-6.2); White Blood Count 8.5 K/mm3 (4.4-11.0)
[2024-06-29 09:06] LABS: AST(SGOT) 47 U/L (15-37); Alanine Aminotransfer ALT/SGPT 52 U/L (16-61); Albumin, Serum 3.5 g/dL (3.2-5.0); Alkaline Phosphatase 85 U/L (45-117); Anion Gap 5 (5-15); BUN 14 mg/dL (7-18); BUN/Creat Ratio 17.9 RATIO (10-20); Calcium,Total 8.8 mg/dL (8.5-10.1); Chloride 108 mmol/L (98-107); Cholesterol 159 mg/dL (200); Creatinine, Serum 0.78 mg/dL (0.70-1.30); EST Glomerular Filtration Rate 114 mL/min (>60); Est Glom Filt Rate - Afr Amer 138 mL/min (>60); Globulin 3.4 g/dL (2.2-4.2); Glucose 87 mg/dL (74-106); High Density Lipoprotein 70 mg/dL; Potassium 4.6 mmol/L (3.5-5.1); Protein, Total 6.9 g/dL (6.4-8.2); Sodium Level 140 mmol/L (136-145); Triglycerides 100 mg/dL; Very Low Density Lipoprotein 20 mg/dL (5-40)
== END | disposition home or self-care (01) ==
PROVIDERS: PCP Family Medicine; Referring Provider Family Medicine; Visit Provider Family Medicine
DX: Z00.00 Encounter for general adult medical examination without abnormal findings (principal); R53.83 Other fatigue; Z13.1 Encounter for screening for diabetes mellitus; Z13.220 Encounter for screening for lipoid disorders
CPT/HCPCS: 36415; 80053; 80061; 82306; 84443; 85025